=== PATIENT | male | born 1985 | race African-American/Black ===

== ENCOUNTER 2022-01-15 08:39 | Emergency (ER) | payer OTHER, SELFPAY ==
[2022-01-15 08:45] VITALS: BP 141/90; PULSE 83; RESP 18; TEMP 36.4; O2SAT 100; BMI 29.8
[2022-01-15 08:49] VITALS: PULSE 74; O2SAT 100
[2022-01-15 08:51] VITALS: BP 141/90; PULSE 82; O2SAT 99
--- NOTE | 2022-01-15 09:04 | DI.US.S_ITS ---
PROCEDURE: US SCROTUM INDICATIONS: left sided pain TECHNIQUE: Real-time scanning was performed of the scrotum and testicles, with image documentation. Color and pulse Doppler interrogation was performed of both testicles. COMPARISON: None. FINDINGS: Right: Testicle is normal in size at 5.7 x 3.7 x 2.4 cm, and homogenous in echotexture. Epididymis is normal in overall size and morphology. No hydrocele or varicoceles. Overlying scrotal skin is normal in thickness. Left: Testicle is normal in size at 5.4 x 3.6 x 2.3 cm, and homogeneous in echotexture. Epididymis is normal in overall size and morphology. No hydrocele or varicoceles. Overlying scrotal skin is normal in thickness. Doppler: Color and pulse Doppler demonstrate normal and symmetric arterial flow in both testicles. IMPRESSION: Unremarkable scrotal ultrasound Approved by: Michael Mark M.D. on 01/15/2022 at 9:29
[2022-01-15 09:13] LABS: Appearance Urine UA CLEAR; Bilirubin Urine UA NEGATIVE (NEGATIVE); Color Urine UA YELLOW; Glucose Urine UA TRACE g/dL (Negative); Ketones Urine UA NEGATIVE (NEGATIVE); Leukocyte Esterase Urine UA TRACE (NEGATIVE); Nitrite Urine UA NEGATIVE (Negative); Occult Blood Urine UA NEGATIVE (Negative); Protein Urine UA NEGATIVE (Negative); Specific Gravity Urine UA 1.025 (1.000-1.035); Urobilinogen Urine UA 0.2 E.U./dL (0.2); pH Urine UA 5.5 (4.5-8.0)
[2022-01-15 09:20] LABS: Amorphous Sediment Urine 1+; Bacteria Urine Few (2-10); Culture Indicated Urine Specimen Cultured; Mucus Urine 1+ (Negative); RBC Urine None Seen (0-5/HPF); WBC Urine 0-1/HPF (0-5/HPF)
--- NOTE | 2022-01-15 10:00 | ED_ITS ---
HPI - Male Genitourinary General Chief complaint: Urogenital-Male Stated complaint: Testicular issue Time Seen by Provider: 01/15/22 08:46 Source: patient Mode of arrival: Ambulatory History of Present Illness HPI Narrative: Patient is a 36-year-old male with history of anxiety presenting with left testicular pain. He says he felt like he has had cyst for number of years however 2 weeks ago he was moving furniture when he hit his testicle directly on the cyst. He has been taking ibuprofen but he feels like this this is a little bit bigger. She denies any fever chills or redness. No significant enlargement of the testicle. He denies any new sexual partners or discharge from his penis. Related Data Allergies Allergy/AdvReac Type Severity Reaction Status Date / Time No Known Allergies Allergy Uncoded 09/02/17 12:49 Review of Systems Review of Systems Narrative: GENERAL: Denies chills,fever HEENT: Denies throat pain RESPIRATORY: Denies dyspnea, cough, wheezing CARDIOVASCULAR: Denies chest pain, palpitations GASTROINTESTINAL: Denies nausea, vomiting : See HPI MUSCULOSKELETAL: Denies extremity pain, injury SKIN: No rash, no laceration, no pruritus NEUROLOGIC: Denies weakness, dizziness, headache, numbness 8 point review of systems is negative except for those stated above and HPI Patient History Social History Smoking Status: Never smoker Smoking Status: Never smoker Exam Initial Vital Signs Initial Vital Signs: Vital Signs Temperature 97.6 F 01/15/22 08:45 Pulse Rate 83 01/15/22 08:45 Respiratory Rate 18 01/15/22 08:45 Blood Pressure 141/90 H 01/15/22 08:45 Pulse Oximetry 100 01/15/22 08:45 Oxygen Delivery Method 01/15/22 08:45 GENERAL: Alert healthy 36-year-old male CARDIOVASCULAR: peripheral pulses in tact, cap refill <2 sec RESPIRATORY: No respiratory distress, speaks in full sentences without difficulty : 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 Neurovascularly intact NEUROLOGICAL: Cranial nerves II through XII grossly intact. Normal gait and speech. SKIN: Warm, dry, no petechiae, no rashes or lesions. Course Orders Ordered: ED Orders 01/15/22 09:04 US scrotum Stat 08/24/22 09:10 Chlamydia Gonorrhea PCR -URINE Stat UA dip and micro [Urinalysis and Microscopic] Stat Urine Culture Stat Vital Signs Vital signs: Vital Signs - 8 hr 01/15/22 08:45 01/15/22 08:49 01/15/22 08:51 Temperature 97.6 F Pulse Rate 83 74 Respiratory Rate 18 Blood Pressure 141/90 H 141/90 H Pulse Oximetry 100 100 Oxygen Delivery Method Room Air 01/15/22 08:51 01/15/22 10:35 Temperature Pulse Rate 82 80 Respiratory Rate 16 Blood Pressure 135/77 Pulse Oximetry 99 98 Oxygen Delivery Method Room Air MDM - Male Genitourinary Lab Data Labs: Lab Results 01/15/22 01/15/22 Range/Units 09:10 09:10 Urine Color Yellow Urine Appearance Clear Urine pH 5.5 (4.5-8.0) Ur Specific [place] 1.025 (1.000-1.035) Urine Protein Negative (Negative) Urine Glucose (UA) Trace H (Negative) g/dL Urine Ketones Negative (NEGATIVE) Urine Occult Blood Negative (Negative) Urine Nitrate Negative (Negative) Urine Bilirubin Negative (NEGATIVE) Urine Urobilinogen 0.2 (0.2) E.U./dL Ur Leukocyte Esterase Trace H (NEGATIVE) Urine RBC None seen (0-5/HPF) Urine WBC 0-1/hpf (0-5/HPF) Amorphous Sediment 1+ Urine Bacteria Few (2-10) H (None) Urine Mucus 1+ H (Negative) Ur Culture Indicated? Specimen cultured Ur Chlamydia DNA (PCR) Not detected N gonorrhoeae DNA (PCR) Not detected Urine Dip Bedside Urine Glucose Negative Bedside Urine Bilirubin - Negative Bedside Urine Ketone +/- 5 Urine Specific [place] 1.030 Bedside Urine Occult Blood - Negative Bedside Urine pH 6 Bedside Urine Protein - Negative Bedside Urine Urobilinogen - Negative Bedside Urine Nitrite - Negative Bedside Urine Leukocytes - Negative Esterase Imaging Data US scrotum: Radiologist's Impression: Ultrasound Report Signed Patient: Nahum Guerrero MR#: [id number] : 1985 Acct:[id number] Age/Sex: 36 / M Date of Service: 01/15/22 Loc: ED Accession Number: [id number] ?? Procedure: US scrotum Ordering Provider: Ericka Mason D.O. PROCEDURE:? US SCROTUM ? INDICATIONS:? left sided pain ? TECHNIQUE:? Real-time scanning was performed of the scrotum and testicles, with image documentation.? Color and pulse Doppler interrogation was performed of both testicles.? ? COMPARISON:? None. ? FINDINGS:? ? Right:? Testicle is normal in size at 5.7 x 3.7 x 2.4 cm, and homogenous in echotexture.? Epididymis is normal in overall size and morphology.? No hydrocele or varicoceles.? Overlying scrotal skin is normal in thickness.? ? Left:? Testicle is normal in size at 5.4 x 3.6 x 2.3 cm, and homogeneous in echotexture.? Epididymis is normal in overall size and morphology.? No hydrocele or varicoceles.? Overlying scrotal skin is normal in thickness.? ? Doppler:? Color and pulse Doppler demonstrate normal and symmetric arterial flow in both testicles.? ? IMPRESSION:? Unremarkable scrotal ultrasound ? ? ? Approved by: Michael Mark M.D. on 01/15/2022 at 9:29? [facility] Narrative Medical decision making narrative: The patient overall appears well urinalysis is negative. He does have cyst like structure in his left testicle no sign of infection. Seems like this may be from a trauma gonorrhea chlamydia pending but does not sound like he has symptoms. Ultrasound is overall negative. Discharge Plan Departure Patient Disposition: Home Clinical Impression: Left testicular pain Instructions: DI for Testicular Pain Activity Restrictions/Additional Instructions: *You have been diagnosed with left testicular pain *What to do: At this time her ultrasound does not show any abnormality although I do appreciate something. Please follow-up with a repeat ultrasound in a couple of with your primary care provider If you are having a bothersome symptoms wear supportive underwear *Continue to take medications as directed Tylenol 1000 mg every 6 hours Motrin 600 mg every 6 hours *Follow up with your primary care provider in 2-3 days or call [phone] *Return to ER if you should have increasing pain swelling redness or any new, worsening or concerning symptoms Visit Report Forms: Patient Portal/API
[2022-01-15 10:35] VITALS: BP 135/77; PULSE 80; RESP 16; O2SAT 98
[2022-01-15 10:40] LABS: Urine Chlamydia NOT DETECTED; Urine N gonorrhoeae NOT DETECTED
== END 2022-01-15 10:40 | disposition home or self-care (01) ==
PROVIDERS: Emergency Provider Emergency Medicine
DX: N50.812 Left testicular pain (principal)
CPT/HCPCS: 76870; 81001; 81003; 87086; 87491; 87591; 99283

== ENCOUNTER → 2022-06-19 18:46 | Outpatient (CLI) | payer OTHER, SELFPAY ==
--- NOTE | 2022-06-19 18:52 | DI.MRI.S_ITS ---
PROCEDURE: MR HEAD/BRAIN WO/W CON INDICATIONS: muscle wasting and atrophy TECHNIQUE: Noncontrast axial T1 spin echo, axial T2 fast spin echo, sagittal and axial FLAIR, coronal T2 fast spin echo, axial gradient echo, axial diffusion and ADC through the brain. After the administration of contrast, axial and coronal and sagittal 3D VIBE or T1 spin echo with fat saturation through the brain. COMPARISON: None. FINDINGS: Image quality: Excellent. CSF Spaces: Basal cisterns are patent. No extra-axial fluid collections. Ventricles are normal in size and shape. Brain: No midline shift. No intracranial bleeds or masses. No abnormal intracranial enhancement. The brainstem appears normal. Diffusion-weighted images demonstrate no acute ischemic insults. No chronic ischemic insults. Normal intravascular flow voids are present. Skull and face: Calvarial marrow is normal in signal. Orbits appear normal. Sinuses: Small left mastoid air cell effusion. Small left maxillary sinus mucous retention cyst. Otherwise clear paranasal sinuses and mastoid air cells. IMPRESSION: Unremarkable MRI of the brain. Dictated by: Hernan Goetz M.D. on 06/20/2022 at 8:55 Approved by: Hernan Goetz M.D. on 06/20/2022 at 8:58
--- NOTE | 2022-06-19 18:52 | DI.MRI.S_ITS ---
PROCEDURE: MR CERVICAL SPINE WO/W CON INDICATIONS: muscle wasting and atrophy TECHNIQUE: Noncontrast sagittal T1 spin echo and T2 fast spin echo, sagittal STIR, foraminal oblique sagittal T2 fast spin echo, axial gradient echo or T2 fast spin echo through the cervical spine. After the administration of contrast, axial and sagittal T1 spin echo with fat saturation through the cervical spine. COMPARISON: None. FINDINGS: Image quality: Excellent. Alignment and curvature: Normal cervical spine vertebral body height and alignment. Normal configuration of the craniocervical junction. Marrow: Marrow is normal in overall signal, without suspicious enhancement. Spinal cord: Visualized spinal cord has normal size and signal. No cerebellar tonsillar herniation. No abnormal intramedullary enhancement. Regional soft tissues: Prevertebral and paraspinous soft tissues normal. C2-3: No spinal canal stenosis or neural foraminal stenosis. C3-4: No spinal canal stenosis or neural foraminal stenosis. C4-5: No spinal canal stenosis or neural foraminal stenosis. C5-6: No spinal canal stenosis or neural foraminal stenosis. C6-7: No spinal canal stenosis or neural foraminal stenosis. C7-T1: No spinal canal stenosis or neural foraminal stenosis. IMPRESSION: Normal cervical spine MRI. Dictated by: Hernan Goetz M.D. on 06/20/2022 at 9:00 Approved by: Hernan Goetz M.D. on 06/20/2022 at 9:01
--- NOTE | 2022-06-19 18:52 | DI.MRI.S_ITS ---
PROCEDURE: MR LUMBAR SPINE WO/W CON INDICATIONS: muscle wasting and atrophy TECHNIQUE: Noncontrast sagittal T1 spin echo and T2 fast spin echo, sagittal STIR, axial T1 and T2 fast spin echo through the lumbar spine. In cases with scoliosis, additional coronal T2 fast spin echo may be performed. After the administration of contrast, sagittal and axial T1 spin echo with fat saturation through the lumbar spine. COMPARISON: None. FINDINGS: Image quality: Excellent. Alignment and curvature: There is normal bony alignment. Marrow: Marrow is of normal overall signal. No acute vertebral body compression fractures. No suspicious marrow enhancement. Spinal cord: Normal signal of the distal thoracic cord. Normal position and appearance of the conus. Regional soft tissues: Prevertebral and paraspinous soft tissues normal. T12-L1: Normal appearance. L1-L2: Normal appearance. L2-L3: Normal appearance. L3-L4: Normal appearance. L4-L5: Disc desiccation and disc height loss with diffuse disc bulge which flattens the ventral thecal sac and may slightly displace the descending L5 nerve roots in both subarticular zones. Mild bilateral neural foraminal narrowing due to facet hypertrophy and foraminal components of the disc bulge. L5-S1: Normal appearance. IMPRESSION: Mild degenerative changes at L4-L5. Otherwise normal exam. Dictated by: Hernan Goetz M.D. on 06/20/2022 at 8:58 Approved by: Hernan Goetz M.D. on 06/20/2022 at 8:59
== END ==
PROVIDERS: Referring Provider Family Medicine; Visit Provider Family Medicine
DX: M62.562 Muscle wasting and atrophy, not elsewhere classified, left lower leg (principal); M47.816 Spondylosis without myelopathy or radiculopathy, lumbar region
CPT/HCPCS: 70553; 72156; 72158; A9579